=== PATIENT | male | born 1960 | race Caucasian/White ===

== ENCOUNTER 2020-06-16 02:18 | Emergency (ER) | payer MEDICAID ==
[~2020-06-16] VITALS: Ht 170.2 cm; Wt 71.0 kg
[2020-06-16 03:18] LABS: EOSINOPHILS % 1.8 % (0.0-5.0); HEMATOCRIT. 38.5 % (42.0-52.0); HEMOGLOBIN. 13.1 g/dL (14.0-18.0); LYMPHOCYTES % 28.1 % (20.0-50.0); MEAN CORPUSCULAR HEMOGLOBIN 31.9 pg (28.0-32.0); MEAN CORPUSCULAR VOLUME 93.3 fL (80.0-94.0); MEAN PLATELET VOLUME 6.7 fl (7.4-10.4); MONOCYTES % 12.2 % (2.0-8.0); NEUTROPHILS % 56.9 % (40.0-76.0); PLATELET 220 x1000/uL (130-400); RED BLOOD CELL COUNT 4.13 mill/uL (4.7-6.1); RED CELL DISTRIBUTION WIDTH 14.1 % (11.6-14.6)
[2020-06-16 03:28] LABS: CHLORIDE 109 mEq/L (98-107)
[2020-06-16 03:32] LABS: ETHANOL BLOOD 251 mg/dL
[2020-06-16 03:35] LABS: CLARITY URINE CLEAR (CLEAR); COLOR URINE YELLOW (YELLOW); KETONES URINE NEGATIVE (NEGATIVE); LEUKOCYTE ESTERASE URINE NEGATIVE (NEGATIVE); NITRITE URINE NEGATIVE (NEGATIVE); OCCULT BLOOD URINE NEGATIVE (NEGATIVE); PROTEIN URINE NEGATIVE (NEGATIVE); SPECIFIC GRAVITY URINE 1.005 (1.005-1.030); UROBILINOGEN URINE 0.2 E.U./dL (0.2-1.0)
[2020-06-16 03:44] LABS: *AMPHETAMINES SCREEN URINE NEGATIVE (NEGATIVE); *BARBITURATES SCREEN URINE NEGATIVE (NEGATIVE); *BENZODIAZEPINES SCREEN URINE NEGATIVE (NEGATIVE); *COCAINE SCREEN URINE NEGATIVE (NEGATIVE); METHADONE URINE SCREEN NEGATIVE (NEGATIVE); OPIATES URINE SCREEN NEGATIVE (NEGATIVE); PHENCYCLIDINE URINE SCREEN NEGATIVE (NEGATIVE)
[2020-06-16 03:45] LABS: CANNABINOID URINE SCREEN NEGATIVE (NEGATIVE)
[2020-06-17 04:10] VITALS: BP 119/87
== END 2020-06-17 04:32 | disposition home or self-care (01) ==
LOC: ER 02:18
DX: R45.851 Suicidal ideations (principal); I10 Essential (primary) hypertension; F10.129 Alcohol abuse with intoxication, unspecified; Y90.8 Blood alcohol level of 240 mg/100 ml or more; Z20.822 Contact with and (suspected) exposure to COVID-19; Z87.891 Personal history of nicotine dependence
CPT/HCPCS: 36415; 80053; 80305; 80307; 80320; 80329; 81003; 85025; 93005; 99285; C9803; U0003; U0005; Z7610; G0480

== ENCOUNTER 2022-01-31 06:56 | Emergency (ER) | payer MEDICAID ==
[~2022-01-31] VITALS: Ht 172.7 cm; Wt 69.0 kg
[2022-01-31 07:01] VITALS: BP 131/81
[2022-01-31] MEDS ORDERED: ONDANSETRON HCL 4MG/2ML INJ IV STA (07:34)
[2022-01-31] MEDS ORDERED: MAGNESIUM/ALUMINUM HYDROXIDE/SIMETHICONE 30ML UDC PO STA (07:34)
[2022-01-31] MEDS ORDERED: SODIUM CHLORIDE 0.9% 1,000 ML IV ONE (07:45)
[2022-01-31] MEDS ORDERED: FAMOTIDINE 20MG/2ML VIAL IV ONE (07:45)
[2022-01-31 09:47] LABS: BASOPHILS % 0.6 % (0.0-2.0); EOSINOPHILS % 0.3 % (0.0-5.0); HEMATOCRIT. 45.3 % (42.0-52.0); HEMOGLOBIN. 15.5 g/dL (14.0-18.0); LYMPHOCYTES % 9.5 % (20.0-50.0); MEAN CORPUSCULAR HEMOGLOBIN 31.8 pg (28.0-32.0); MEAN CORPUSCULAR VOLUME 93.2 fL (80.0-94.0); MEAN PLATELET VOLUME 7.3 fl (7.4-10.4); MONOCYTES % 5.9 % (2.0-8.0); NEUTROPHILS % 83.7 % (40.0-76.0); PLATELET 247 x1000/uL (130-400); RED BLOOD CELL COUNT 4.86 mill/uL (4.7-6.1); RED CELL DISTRIBUTION WIDTH 13.6 % (11.6-14.6)
[2022-01-31 09:55] LABS: CHLORIDE 105 mEq/L (98-107)
[2022-01-31] MEDS ORDERED: ONDANSETRON HCL 4MG/2ML INJ IV NR (12:21)
[2022-01-31] MEDS ORDERED: FAMOTIDINE 20MG/2ML VIAL IV NR (12:30)
[2022-01-31] MEDS ORDERED: MAGNESIUM/ALUMINUM HYDROXIDE/SIMETHICONE 30ML UDC PO NR (12:30)
[2022-01-31] MEDS ORDERED: MAG-55 MT ×3 (13:01→16:19)
[2022-01-31] MEDS ORDERED: SUCR1TAB30 MT (16:19)
== END 2022-01-31 17:30 | disposition home or self-care (01) ==
LOC: ER 06:56
DX: R10.13 Epigastric pain (principal); I10 Essential (primary) hypertension; Z98.890 Other specified postprocedural states; Z87.19 Personal history of other diseases of the digestive system
CPT/HCPCS: 36415; 71045; 80053; 83690; 85025; 96361; 96374; 96375; 99284; J2405; J3490; J7030; Z7610

== ENCOUNTER 2023-10-06 17:16 | Emergency (ER) | payer MEDICAID ==
[~2023-10-06] VITALS: Ht 177.8 cm; Wt 86.0 kg
[~2023-10-06 17:16] MED LIST: MAG-55 MT; SUCR1TAB30 MT
[2023-10-06 17:18] VITALS: O2SAT 100
[2023-10-06] MEDS ORDERED: FLUT9.9S BOTHNSTRLS (20:22)
[2023-10-06] MEDS ORDERED: TOPUD MT (20:22)
[2023-10-06] MEDS ORDERED: P50 MT (20:22)
[2023-10-06] MEDS ORDERED: LORA10TA64 MT (20:22)
[2023-10-06 20:36] VITALS: BP 155/90; PULSE 81; RESP 18; TEMP 37.00296; O2SAT 100
== END 2023-10-06 20:36 | disposition home or self-care (01) ==
LOC: ER 17:16
DX: R42 Dizziness and giddiness (principal); I10 Essential (primary) hypertension; Z79.899 Other long term (current) drug therapy
CPT/HCPCS: 99283

== ENCOUNTER 2024-05-16 16:35 | Inpatient (IN) | payer MEDICAID ==
[~2024-05-16] VITALS: Ht 167.6 cm; Wt 81.6 kg
[~2024-05-16 16:35] MED LIST changes: +FLUT9.9S BOTHNSTRLS; +LORA10TA64 MT; +P50 MT; +TOPUD MT
[2024-05-16 17:29] LABS: BASOPHILS % 0.6 % (0.0-2.0); EOSINOPHILS % 0.9 % (0.0-5.0); HEMATOCRIT. 26.9 % (42.0-52.0); HEMOGLOBIN. 8.4 g/dL (14.0-18.0); LYMPHOCYTES % 17.5 % (20.0-50.0); MEAN CORPUSCULAR HEMOGLOBIN 21.8 pg (28.0-32.0); MEAN CORPUSCULAR HGB CONC 31.3 g/dL (31.0-37.0); MEAN CORPUSCULAR VOLUME 69.8 fL (80.0-94.0); MEAN PLATELET VOLUME 6.9 fl (7.4-10.4); MONOCYTES % 12.3 % (2.0-8.0); NEUTROPHILS % 68.7 % (40.0-76.0); PLATELET 266 x1000/uL (130-400); RED BLOOD CELL COUNT 3.86 mill/uL (4.7-6.1); RED CELL DISTRIBUTION WIDTH 19.6 % (11.6-14.6); WHITE BLOOD COUNT 6.1 x1000/uL (4.5-11.0)
[2024-05-16 17:31] LABS: ADD RBC MORPHOLOGY YES; DIFFERENTIAL COMMENT 1
[2024-05-16 17:39] LABS: INR 1.1; PROTHROMBIN TIME 11.4 sec (9.6-11.0)
[2024-05-16 17:42] LABS: CARBON DIOXIDE 23 mEq/L (21-32); CHLORIDE 105 mEq/L (98-107); POTASSIUM 3.5 mEq/L (3.5-5.1); SODIUM 139 mEq/L (136-145)
[2024-05-16 17:43] LABS: CALCIUM 9.5 mg/dL (8.7-10.4)
[2024-05-16 17:48] LABS: CREATININE 0.9 mg/dL (0.6-1.3); ETHANOL BLOOD < 10 mg/dL (<10); GLUCOSE 93 mg/dL (70-105); UREA NITROGEN BLOOD 17 mg/dL (9-23)
[2024-05-16 17:49] LABS: TROPONIN I HIGH SENSITIVITY < 4 ng/L (3.0-53)
[2024-05-16] MEDS ORDERED: GUAIFENESIN 200MG/10ML SUGAR FREE UDC PO PRN (19:00)
[2024-05-16] MEDS ORDERED: ONDANSETRON HCL 4MG/2ML INJ IV PRN (19:00)
[2024-05-16] MEDS ORDERED: CLONIDINE 0.1MG TABLET PO PRN (19:00)
[2024-05-16] MEDS ORDERED: DOCUSATE SODIUM 100MG CAPSULE PO PRN (19:00)
[2024-05-16] MEDS ORDERED: HYDROCODONE/ACETAMINOPHEN 5/325MG TABLET PO PRN (19:00)
[2024-05-16] MEDS ORDERED: DEXTROSE 50% WATER 50ML SYRINGE IV PRN (19:00)
[2024-05-16] MEDS ORDERED: NA PHOS,M-B/NA PHOS,DI-BA ENEMA 118ML PR PRN (19:00)
[2024-05-16] MEDS ORDERED: IPRATROPIUM/ALBUTEROL 0.5-3(2.5)MG/3ML NEB HHN PRN (19:00)
[2024-05-16] MEDS ORDERED: MAGNESIUM/ALUMINUM HYDROXIDE/SIMETHICONE 30ML UDC PO PRN (19:00)
[2024-05-16] MEDS ORDERED: ACETAMINOPHEN 325MG TABLET PO PRN ×2 (19:00)
[2024-05-16] MEDS ORDERED: NALOXONE HCL 0.4MG/ML VIAL IV PRN (19:15)
[2024-05-16 19:32] LABS: ANISOCYTOSIS 1+; HYPOCHROMASIA 2+; MICROCYTOSIS 3+; PLATELET ESTIMATE NORMAL
[2024-05-16 19:33] LABS: OVALOCYTES 1+
[2024-05-16] MEDS: CLOPIDOGREL 75MG TABLET PO NR (19:54)
[2024-05-16] MEDS: SODIUM CHLORIDE 0.9% 1,000 ML IV SCH (19:56)
[2024-05-16] MEDS: ASPIRIN 325MG EC TABLET PO NR (19:59)
[2024-05-16 20:10] LABS: IRON 15 ug/dL (65-175)
[2024-05-16 20:13] LABS: PHOSPHORUS 1.9 mg/dL (2.5-4.9); TOTAL IRON BINDING CAPACITY 353 ug/dl (250-425)
[2024-05-16] MEDS: ENOXAPARIN 40MG/0.4ML SYR SUBCUT SCH (20:28)
[2024-05-16 20:48] LABS: LACTIC ACID 2.9 mmol/L (0.4-2.0)
[2024-05-16] MEDS: INSULIN LISPRO 100 UNITS/ML SUBCUT SCH (21:00)
[2024-05-16 21:41] VITALS: BP 146/94; PULSE 62; RESP 15; TEMP 36.8; O2SAT 98
[2024-05-16 21:44] VITALS: BP 146/94; PULSE 62; RESP 15; TEMP 36.8
[2024-05-16 22:04] LABS: FOLIC ACID (FOLATE) SERUM 14.73 ng/mL (>5.38)
[2024-05-16 22:05] LABS: FERRITIN 3 ng/mL (22-322); VITAMIN B12 SERUM 77 pg/mL (211-911)
[2024-05-16] MEDS: ATORVASTATIN CALCIUM 40MG TABLET PO SCH (22:41)
[2024-05-16] MEDS: BLOOD SUGAR DIAGNOSTIC STRIP TEST SCH (22:44)
[2024-05-16] MEDS ORDERED: IOHEXOL-350 100 ML BOTTLE ONE (22:45)
[2024-05-16 23:58] LABS: CREATINE KINASE 100 IU/L (46-171)
[2024-05-17] VITALS: BP 114/70; PULSE 69; RESP 16; TEMP 36.7; O2SAT 99
[2024-05-17 00:03] LABS: TROPONIN I HIGH SENSITIVITY < 4 ng/L (3.0-53)
[2024-05-17 02:21] LABS: *AMPHETAMINES SCREEN URINE NEGATIVE (NEGATIVE); *BARBITURATES SCREEN URINE NEGATIVE (NEGATIVE); *BENZODIAZEPINES SCREEN URINE NEGATIVE (NEGATIVE); *COCAINE SCREEN URINE NEGATIVE (NEGATIVE); CANNABINOID URINE SCREEN NEGATIVE (NEGATIVE); ECSTASY MDMA SCREEN URINE CONF.TEST INDICATED (NEGATIVE); METHADONE URINE SCREEN NEGATIVE (NEGATIVE); OPIATES URINE SCREEN NEGATIVE (NEGATIVE); PHENCYCLIDINE URINE SCREEN NEGATIVE (NEGATIVE)
[2024-05-17 02:23] LABS: CLARITY URINE CLEAR (CLEAR); COLOR URINE YELLOW (YELLOW); GLUCOSE URINE NEGATIVE (NEGATIVE); KETONES URINE NEGATIVE (NEGATIVE); LEUKOCYTE ESTERASE URINE 1+ (NEGATIVE); NITRITE URINE NEGATIVE (NEGATIVE); OCCULT BLOOD URINE NEGATIVE (NEGATIVE); PROTEIN URINE NEGATIVE (NEGATIVE); SPECIFIC GRAVITY URINE 1.018 (1.005-1.030); UROBILINOGEN URINE 0.2 E.U./dL (0.2-1.0)
[2024-05-17 04:00] VITALS: BP 120/78; PULSE 60; RESP 15; TEMP 36.8; O2SAT 96
[2024-05-17 04:33] LABS: RBC URINE 0-2 /hpf (0-2); SQUAMOUS EPITHELIAL CELL URINE NONE SEEN /lpf (RARE/1+)
[2024-05-17 04:39] LABS: BACTERIA URINE 1+
[2024-05-17] MEDS: PANTOPRAZOLE 40MG DR TABLET PO SCH ×2 (06:07→18:33)
[2024-05-17 07:29] LABS: CALCIUM 9.7 mg/dL (8.7-10.4); CHLORIDE 109 mEq/L (98-107); POTASSIUM 3.7 mEq/L (3.5-5.1); SODIUM 142 mEq/L (136-145)
[2024-05-17 07:30] LABS: CARBON DIOXIDE 24 mEq/L (21-32)
[2024-05-17 07:31] LABS: BASOPHILS % 0.5 % (0.0-2.0); EOSINOPHILS % 1.1 % (0.0-5.0); HEMATOCRIT. 28.4 % (42.0-52.0); HEMOGLOBIN. 8.8 g/dL (14.0-18.0); LYMPHOCYTES % 16.3 % (20.0-50.0); MEAN CORPUSCULAR HEMOGLOBIN 21.6 pg (28.0-32.0); MEAN CORPUSCULAR HGB CONC 30.9 g/dL (31.0-37.0); MEAN CORPUSCULAR VOLUME 69.8 fL (80.0-94.0); MEAN PLATELET VOLUME 7.2 fl (7.4-10.4); MONOCYTES % 12.9 % (2.0-8.0); NEUTROPHILS % 69.2 % (40.0-76.0); PLATELET 270 x1000/uL (130-400); RED BLOOD CELL COUNT 4.08 mill/uL (4.7-6.1); RED CELL DISTRIBUTION WIDTH 19.4 % (11.6-14.6); TROPONIN I HIGH SENSITIVITY 5 ng/L (3.0-53); WHITE BLOOD COUNT 7.9 x1000/uL (4.5-11.0)
[2024-05-17 07:35] LABS: CREATININE 0.7 mg/dL (0.6-1.3); GLUCOSE 85 mg/dL (70-105); TRIGLYCERIDE 68 mg/dL (0-150); UREA NITROGEN BLOOD 13 mg/dL (9-23)
[2024-05-17 07:36] LABS: LDL CHOLESTEROL 69 mg/dL (5-100); T4 FREE 0.98 ng/dL (0.89-1.76); THYROID STIMULATING HORMONE 0.79 uIU/mL (0.55-4.78)
[2024-05-17 07:37] LABS: CHOLESTEROL 135 mg/dL (<200); CREATINE KINASE 80 IU/L (46-171); HDL CHOLESTEROL 62 mg/dL (>55)
[2024-05-17 07:46] LABS: DIFFERENTIAL COMMENT 1
[2024-05-17 08:00] VITALS: BP 126/80; PULSE 60; RESP 15; TEMP 36.7; O2SAT 97
[2024-05-17] MEDS: ASPIRIN 81MG TABLET PO SCH (08:12)
[2024-05-17] MEDS: CLOPIDOGREL 75MG TABLET PO SCH (08:13)
[2024-05-17 12:00] VITALS: BP 140/89; PULSE 60; RESP 16; TEMP 36.6; O2SAT 98
[2024-05-17 16:00] VITALS: BP 133/112; PULSE 60; RESP 17; TEMP 36.7; O2SAT 99
[2024-05-17 19:51] LABS: ALANINE AMINOTRANSFERASE 10 IU/L (10-49); ALBUMIN 3.9 g/dL (3.2-4.8); ASPARTATE AMINOTRANSFERASE 21 IU/L (<34); BILIRUBIN DIRECT 0.2 mg/dL (<=3.0); BILIRUBIN TOTAL 0.5 mg/dL (0.1-1.0)
[2024-05-17 20:00] VITALS: BP 149/106; PULSE 79; RESP 17; TEMP 36.8; O2SAT 99
[2024-05-17] MEDS: ATORVASTATIN CALCIUM 40MG TABLET PO SCH (21:08)
[2024-05-18] VITALS: BP 135/87; PULSE 60; RESP 13; TEMP 37.1; O2SAT 98
[2024-05-18 04:00] VITALS: BP 139/91; PULSE 60; RESP 16; TEMP 36.7; O2SAT 96
[2024-05-18 08:00] VITALS: BP 136/94; PULSE 67; RESP 19; TEMP 36.7; O2SAT 97
[2024-05-18 08:07] LABS: CHLORIDE 110 mEq/L (98-107); POTASSIUM 3.9 mEq/L (3.5-5.1); SODIUM 143 mEq/L (136-145)
[2024-05-18 08:08] LABS: CALCIUM 9.8 mg/dL (8.7-10.4); CARBON DIOXIDE 25 mEq/L (21-32)
[2024-05-18 08:13] LABS: CREATININE 0.7 mg/dL (0.6-1.3); GLUCOSE 76 mg/dL (70-105); TRIGLYCERIDE 59 mg/dL (0-150); UREA NITROGEN BLOOD 12 mg/dL (9-23)
[2024-05-18 08:14] LABS: LDL CHOLESTEROL 53 mg/dL (5-100)
[2024-05-18 08:15] LABS: CHOLESTEROL 119 mg/dL (<200); HDL CHOLESTEROL 60 mg/dL (>55)
[2024-05-18] MEDS: ASPIRIN 81MG EC TABLET PO SCH (08:25)
[2024-05-18] MEDS: CLOPIDOGREL 75MG TABLET PO SCH (08:26)
[2024-05-18 08:33] LABS: HEPATITIS B SURFACE ANTIGEN NEGATIVE (Negative)
[2024-05-18 08:56] LABS: HEPATITIS C AB NON REACTIVE (Neg) (Negative)
[2024-05-18 09:09] LABS: BASOPHILS % 0.8 % (0.0-2.0); DIFFERENTIAL COMMENT 0; EOSINOPHILS % 1.6 % (0.0-5.0); HEMATOCRIT. 28.8 % (42.0-52.0); HEMOGLOBIN. 8.7 g/dL (14.0-18.0); LYMPHOCYTES % 21.9 % (20.0-50.0); MEAN CORPUSCULAR HEMOGLOBIN 21.3 pg (28.0-32.0); MEAN CORPUSCULAR HGB CONC 30.3 g/dL (31.0-37.0); MEAN CORPUSCULAR VOLUME 70.4 fL (80.0-94.0); MEAN PLATELET VOLUME 7.4 fl (7.4-10.4); NEUTROPHILS % 61.7 % (40.0-76.0); PLATELET 263 x1000/uL (130-400); RED BLOOD CELL COUNT 4.09 mill/uL (4.7-6.1); RED CELL DISTRIBUTION WIDTH 19.2 % (11.6-14.6); WHITE BLOOD COUNT 6.1 x1000/uL (4.5-11.0)
[2024-05-18 12:00] VITALS: BP 123/77; PULSE 68; RESP 14; TEMP 36.4; O2SAT 100
[2024-05-18] MEDS ORDERED: CLOP-31 PO (12:49)
[2024-05-18] MEDS ORDERED: ASPI-1406 PO (12:49)
[2024-05-18] MEDS ORDERED: LIP40 PO (12:49)
[2024-05-18] MEDS ORDERED: NITR-87 MT (13:18)
[2024-05-18 16:00] VITALS: BP 132/88; PULSE 64; RESP 16; TEMP 36.6; O2SAT 98
[2024-05-18 17:08] VITALS: BP 132/88; PULSE 62; TEMP 97.8; O2SAT 98
[2024-05-19] MEDS ORDERED: FAMOTIDINE 20MG TABLET PO SCH (09:00)
== END 2024-05-18 17:20 | disposition home or self-care (01) | DRG 48 ==
LOC: ER 16:35 → EDBEDREQ 16:50 → 3WST 21:38
PROVIDERS: ADMIT Internal Medicine; ATTEND Internal Medicine
DX: G90.89 Other disorders of autonomic nervous system (principal); I49.5 Sick sinus syndrome; G20.A1 Parkinson's disease without dyskinesia, without mention of fluctuations; G45.9 Transient cerebral ischemic attack, unspecified; I10 Essential (primary) hypertension; N40.0 Benign prostatic hyperplasia without lower urinary tract symptoms; R47.01 Aphasia; Z79.02 Long term (current) use of antithrombotics/antiplatelets; Z79.82 Long term (current) use of aspirin; Z86.718 Personal history of other venous thrombosis and embolism; Z95.0 Presence of cardiac pacemaker
CPT/HCPCS: 36415; 70496; 70498; 71045; 76770; 80048; 80061; 80076; 80305; 80320; 81003; 82550; 82607; 82728; 82746; 82962; 83036; 83540; 83550; 83605; 83735; 83880; 84100; 84439; 84443; 84484; 85025; 85044; 85379; 86705; 87077; 87186; 87340; 93005; 93970; 97165; 99285; A4606; J1650; Q9967; G0480